=== PATIENT | male | born 1985 | race Caucasian/White ===

== ENCOUNTER 2017-12-24 11:02 | Emergency (ER) | payer OTHER ==
[2017-12-24 11:33] VITALS: BP 137/75
--- NOTE | 2017-12-24 12:39 | UC ---
Knee Pain HPI - HPI Summary HPI Summary: Pt c/o sudden onset of pain in right knee after being in standing position, reaching toward right side and hearing "pop" and sudden onset of pain in right knee. Pt denies any other trauma or injury to knee. Pt able to bear weight and to ambulate. - History of Current Complaint Chief Complaint: UCLowerExtremity Stated Complaint: W/C RT KNEE INJURY Time Seen by Provider: 12/24/17 12:15 Hx Obtained From: Patient Onset/Duration: Sudden Onset Severity Initially: Moderate Severity Currently: Mild Pain Intensity: 2 Character: Dull, Aching Aggravating Factor(s): Movement, Prolonged Standing Alleviating Factor(s): Rest, Position Associated Signs And Symptoms: Positive: Negative Able to Bear Weight: Yes - Risk Factors Septic Arthritis Risk Factor: Negative Gout Risk Factor: Negative - Allergies/Home Medications Allergies/Adverse Reactions: Allergies Allergy/AdvReac Type Severity Reaction Status Date / Time insect bite Allergy Swelling Uncoded 12/24/17 11:27 Of Face,Lips,& Throat Home Medications: Home Medications NK [No Home Medications Reported] 12/24/17 [History Confirmed 12/24/17] PMH/Surg Hx/FS Hx/Imm Hx Previously Healthy: Yes - Surgical History Surgical History: None - Family History Known Family History: Positive: Hypertension - Social History Occupation: Employed Full-time Lives: With Family Alcohol Use: None Substance Use Type: None Smoking Status (MU): Never Smoked Tobacco Have You Smoked in the Last Year: No - Immunization History Most Recent Tetanus Shot: UTD Review of Systems Constitutional: Negative Skin: Negative Eyes: Negative ENT: Negative Respiratory: Negative Cardiovascular: Negative Gastrointestinal: Negative Genitourinary: Negative Motor: Negative Neurovascular: Negative Musculoskeletal: Arthralgia - right knee, Myalgia - right knee Neurological: Negative Psychological: Negative Is Patient Immunocompromised?: No All Other Systems Reviewed And Are Negative: Yes Physical Exam Triage Information Reviewed: Yes Appearance: Well-Appearing Vital Signs: Initial Vital Signs Temp 96.9 F 12/24/17 11:28 Pulse 64 12/24/17 11:28 Resp 16 12/24/17 11:28 BP 137/75 12/24/17 11:28 Pulse Ox 99 12/24/17 11:28 Vital Signs Reviewed: Yes Eye Exam: Normal ENT Exam: Normal Dental Exam: Normal Neck exam: Normal Respiratory: Positive: No respiratory distress Musculoskeletal Exam: Other Musculoskeletal: Positive: Other: - c/o pain with full extension Neurological Exam: Normal Psychological Exam: Normal Skin Exam: Normal Knee Pain Course/Dx - Differential Dx/Diagnosis Differential Diagnosis/HQI/PQRI: Internal Derangement Of Knee, Sprain, Strain Provider Diagnoses: right knee pain. Discharge - Sign-Out/Discharge Documenting (check all that apply): Patient Departure - Discharge Plan Condition: Stable Disposition: HOME Patient Education Materials: Knee Pain (ED) Forms: *Work Release Referrals: Alvaro Nolan MD [Medical Doctor] - If Needed Tamra Walsh MD [Primary Care Provider] - If Needed - Billing Disposition and Condition Condition: STABLE Disposition: Home
== END 2017-12-24 13:00 | disposition home or self-care (01) ==
LOC: UCCORT 11:02
DX: M25.561 Pain in right knee (principal); Z91.038 Other insect allergy status
CPT/HCPCS: 99211; G0463

== ENCOUNTER 2018-09-19 08:22 | Day surgery (SDC) | payer OTHER ==
[~2018-09-19 08:22] MED LIST: Acetaminophen TAB* 325 MG PO ONE; Buffered Lidocaine 1% SYRIN* 1 ML/SYRINGE INTRADERM ONE; Dexamethasone IV* 4 MG/ML 1 ML (4 MG) IV SLOW PU ONE; Famotidine IV* 10 MG/ML 2 ML (20 mg) IV ONE; Famotidine TAB* 20 MG PO ONE; Gabapentin CAP(*) 300 MG PO ONE; Lactated Ringers 1000 ML Bag* 1,000 ML IV SCH; celeCOXIB CAP* 200 MG PO ONE
[2018-09-19] MEDS ORDERED: Midazolam* 1 MG/ML 2 ML VIAL (2 MG) ONE (08:40)
[2018-09-19] MEDS ORDERED: Rocuronium* 10 MG/ML VIAL ONE (08:40)
[2018-09-19] MEDS ORDERED: Propofol* 10 MG/ML 20 ML BTL ONE (08:40)
[2018-09-19] MEDS ORDERED: fentaNYL* 50 MCG/ML 2 ML VIAL (100 MCG VIAL) ONE (08:40)
[2018-09-19] MEDS ORDERED: Succinylcholine* 20 MG/ML 10 ML VIAL ONE (08:41)
[2018-09-19] MEDS ORDERED: Gabapentin CAP(*) 300 MG ONE (08:59)
[2018-09-19] MEDS ORDERED: celeCOXIB CAP* 100 MG ONE (08:59)
[2018-09-19] MEDS ORDERED: Dexamethasone IV* 4 MG/ML 1 ML (4 MG) ONE (08:59)
[2018-09-19] MEDS ORDERED: Acetaminophen TAB* 325 MG ONE ×2 (09:00→13:43)
[2018-09-19] MEDS ORDERED: Buffered Lidocaine 1% SYRIN* 1 ML/SYRINGE INTRADERM ONE (09:00)
[2018-09-19] MEDS ORDERED: ceFAZolin 2 GM in NS PREMIX(*) 2 GM/100 ML BAG IVPB ONE (09:00)
[2018-09-19] MEDS ORDERED: Famotidine TAB* 20 MG ONE (09:00)
[2018-09-19] MEDS ORDERED: EPINEPHRINE 1 MG/ML 1 ML VIAL ONE ×2 (10:19→10:27)
[2018-09-19] MEDS ORDERED: Bupivacaine 0.5%* 50 ML VIAL ONE (10:20)
[2018-09-19] MEDS ORDERED: Lidocaine 1%* 5 ML VIAL ONE (10:21)
[2018-09-19] MEDS ORDERED: ROPIVACAINE 5 MG/ML 30 ML BTL (0.5%) ONE (10:21)
[2018-09-19] MEDS ORDERED: Bupivacaine 0.25% W/EPI* 10 ML SDV ONE (10:27)
[2018-09-19] MEDS ORDERED: ceFAZolin 1 GM ADVAN(*) 1 GM ADDV.VIAL IVPB ONE (10:28)
[2018-09-19] MEDS ORDERED: Ondansetron INJ* 2 MG/ML VIAL IV PRN (11:37)
[2018-09-19] MEDS ORDERED: Ketorolac INJ* 30 MG/ML 1 ML VIAL IV PRN (11:37)
[2018-09-19] MEDS ORDERED: Acetaminophen TAB* 325 MG PO PRN (11:37)
[2018-09-19] MEDS ORDERED: HYDROmorphone INJ1* 1 MG/ML SYRINGE IV PRN (11:37)
[2018-09-19] MEDS ORDERED: Naloxone* 0.4 MG/ML 1 ML VIAL IV PRN (11:37)
[2018-09-19] MEDS ORDERED: oxyCODONE TAB* 5 MG TAB PO PRN (11:37)
[2018-09-19] MEDS ORDERED: DiMENhydriNATE IV* 50 MG/ML VIAL IV PUSH PRN (11:37)
[2018-09-19] MEDS ORDERED: fentaNYL* 50 MCG/ML 2 ML VIAL (100 MCG VIAL) IV PRN (11:37)
[2018-09-19] MEDS ORDERED: Ketorolac INJ* 30 MG/ML 1 ML VIAL ONE (13:06)
[2018-09-19] MEDS ORDERED: Ondansetron INJ* 2 MG/ML VIAL ONE (13:14)
[2018-09-19] MEDS ORDERED: DiMENhydriNATE IV* 50 MG/ML VIAL ONE (13:49)
[2018-09-19 14:25] VITALS: BP 124/76
--- NOTE | 2018-09-19 17:05 | OP ---
DATE OF OPERATION: 09/19/18 - [facility] DATE OF : 83 SURGEON: Bismark Marie MD ANESTHESIA: Regional and general. PRE-OP DIAGNOSES: 1. [place] complex with SLAP lesion, right shoulder. 2. Impingement syndrome. POST-OP DIAGNOSES: 1. [place] complex with SLAP lesion right shoulder. 2. Impingement syndrome. OPERATIVE PROCEDURE: 1. Right shoulder arthroscopy. 2. Labral repair. 3. Subacromial decompression. ESTIMATED BLOOD LOSS: Less than 20 cc. COMPLICATIONS: None. SUMMARY: Mr. Sharpe is a 33-year-old male who I had met approximately 3 years ago with right shoulder pain. He underwent an MRI, which showed a [place] complex quite nicely, but there also appeared to be a detachment of the very top of the labrum. I had discussed with him that a shoulder arthroscopy, labral repair, and decompression as he also had impingement symptoms. He just had started a job at [employer] and did not have the time available. He now has the time available and re-presented to the office, requesting the right shoulder arthroscopy as he still has the exact same symptoms with the shoulder. Specifically, he has pain as he tries to reach up and do anything heavier with the shoulder and as he moves, there is very specific pop within the shoulder which is painful. Risks of surgery such as infection, scar formation, stiffness , and continued pain were some of the risks discussed. He had wished to proceed. DESCRIPTION OF PROCEDURE: The patient had a block placed in the holding area and was brought back to the OR. General endotracheal anesthesia was established. He was set up in the beach chair position. Care was taken to make sure that his ears were nice and free in a head of insight and that is left shoulder was nicely padded on the airplane board. Right shoulder area was prepped and then draped. Anterior and posterior portal sites were preinjected using 10 cc of 0.25% Marcaine with epinephrine. A standard posterior portal was made first using an 11 blade and blunt trocar, and the sheath was easily introduced into the shoulder joint. Camera was introduced into the sheath and shoulder was allowed to insufflate. Pulling back, labral tear was immediately evident. Pictures were taken. Under direct vision using an outside-in- technique, anterior portal was established and probe was introduced. It could be seen where he had very specific damage of the labral attachment right at the top of the glenoid. He actually had a good variant of the Jelly complex as I was able to get some nice pictures showing how the labrum came down and merged in the anterior capsule, but he actually had much better labrum than I had seen in many other people along the anterior rim of the glenoid as well. Shaver was used to debride the nubbin pieces of torn labrum from the 12 to 1 o'clock position. Shaver was then used to scuff the top side of the glenoid and underside of the labrum right in that area. Port was introduced and a 3.5 anchor was placed and a nice solid bite was obtained with it. Using high angle [place] , I was able to grasp one of the sutures and pull through and around and then the labrum was sewn down at approximately at 12:30 position. Rotator cuff attachment was in excellent condition and no loose bodies were seen in the pouch. Shoulder joint was exited and subacromial space was entered. Thickened bursa was present and taken down using the shaver. Once the nice bursectomy was performed, bur was introduced and used to decompression. Final pictures were then taken. All instrumentation was removed. Portal sites were closed using 4-0 nylon sutures. Sterile dressing and Cryo/Cuff and shoulder immobilizer were applied in the OR. The patient was then extubated in the OR and was stable on transfer to the recovery room. DISPOSITION/DISCHARGE SUMMARY: Mr. Sharpe is a 33-year-old male who just underwent a right shoulder arthroscopy and labral repair. He tolerated the procedure well. There were no complications. He is here in the recovery room. Once he wakes a bit more from his general anesthesia, can tolerate p.o., has his pain well controlled, and can void, he will be discharged home. Prescriptions for [place] will be sent in. He has instructions to keep his dressing clean, dry, and intact for the next 3 days, but after that, may take his dressing down, cover his sutures with Band-Aid, may shower, wash and get it wet, but should not soak it. He should not reach up above 90 degrees or out to the side. I would like to see him in the office in approximately 10 days to remove his sutures and make sure he is doing well. If there are any problems or if anything odd should occur, there are instructions to give the office a call. [id number]/[facility] #: [id number] DANIEL
== END 2018-09-19 14:38 | disposition home or self-care (01) ==
LOC: OR 08:22
PROVIDERS: ATTEND Orthopaedic Surgery
DX: S43.431A Superior glenoid labrum lesion of right shoulder, initial encounter (principal); M75.41 Impingement syndrome of right shoulder; G89.18 Other acute postprocedural pain; J45.990 Exercise induced bronchospasm; K21.9 Gastro-esophageal reflux disease without esophagitis; X58.XXXA Exposure to other specified factors, initial encounter; Y92.9 Unspecified place or not applicable
CPT/HCPCS: A9270-GY; C1713; J0330; J0690; J1100; J1240; J1885; J2250; J2405; J2704; J2795; J3010

== ENCOUNTER 2019-03-02 11:48 | Emergency (ER) | payer OTHER ==
[2019-03-02 12:37] VITALS: BP 133/66
--- NOTE | 2019-03-02 12:47 | UC ---
Skin Complaint HPI - HPI Summary HPI Summary: Pt presents with c/o insect bite/sting to right upper medial arm. Pt believes he was stung yesterday. Pt has not taken any antihistamine. - History of Current Complaint Chief Complaint: UCRash Time Seen by Provider: 03/02/19 12:39 Stated Complaint: STING ON RT ARM Hx Obtained From: Patient Onset/Duration: Sudden Onset, Lasting Days, Still Present Skin Exposure Onset/Duration: Days Ago - 1 Timing: Constant Onset Severity: Mild Current Severity: Mild Pain Intensity: 0 Location: Discrete - right upper medial arm Character: Swelling, Pruritus, Redness, Raised Aggravating Factor(s): Touch Alleviating Factor(s): Unknown Associated Signs & Symptoms: Positive: Rash, Tenderness Related History: Insect Bite/Sting - Allergy/Home Medications Allergies/Adverse Reactions: Allergies Allergy/AdvReac Type Severity Reaction Status Date / Time insect bite Allergy Swelling Uncoded 03/02/19 12:26 Of Face,Lips,& Throat Home Medications: Home Medications Metoprolol Tab 1 tab PO QPM 03/02/19 [History Confirmed 03/02/19] PMH/Surg Hx/FS Hx/Imm Hx Previously Healthy: Yes - Surgical History Surgical History: Yes Surgery Procedure, Year, and Place: right shoulder [facility] - Family History Known Family History: Positive: Hypertension - Social History Occupation: Employed Full-time Lives: With Family Alcohol Use: None Substance Use Type: None Smoking Status (MU): Never Smoked Tobacco Have You Smoked in the Last Year: No - Immunization History Most Recent Tetanus Shot: UTD Vaccination Up to Date: Yes Review of Systems All Other Systems Reviewed And Are Negative: Yes Constitutional: Positive: Negative Skin: Positive: Rash, Other - redness, erythema, slight swelling, c/o pruritis Eyes: Positive: Negative ENT: Positive: Negative Respiratory: Positive: Negative Cardiovascular: Positive: Negative Gastrointestinal: Positive: Negative Genitourinary: Positive: Negative Motor: Positive: Negative Neurovascular: Positive: Negative Musculoskeletal: Positive: Negative Neurological: Positive: Negative Psychological: Positive: Negative Is Patient Immunocompromised?: No Physical Exam Triage Information Reviewed: Yes Appearance: Well-Appearing Vital Signs: Initial Vital Signs Temp 97.7 F 03/02/19 12:31 Pulse 78 03/02/19 12:31 Resp 18 03/02/19 12:31 BP 133/66 03/02/19 12:31 Pulse Ox 99 03/02/19 12:31 Vital Signs Reviewed: Yes Eye Exam: Normal ENT: Positive: Hearing grossly normal Dental Exam: Normal Neck exam: Normal Respiratory: Positive: No respiratory distress Musculoskeletal Exam: Normal Neurological Exam: Normal Psychological Exam: Normal Skin Exam: Other - large area of redness and slight swelling with area of "bite " in center. ~ 8 cm in diameter. Course/Dx - Differential Diagnoses - Skin Complaint Differential Diagnoses: Cellulitis, Urticaria - Diagnoses Provider Diagnosis: Insect bite Discharge ED - Sign-Out/Discharge Documenting (check all that apply): Patient Departure All imaging exams completed and their final reports reviewed: No Studies - Discharge Plan Condition: Stable Disposition: HOME Patient Education Materials: Antihistamine (By mouth), Insect Bite or Sting (ED ) Referrals: Tahira Mccain MD [Primary Care Provider] - If Needed Additional Instructions: Please follow up with your PCP as needed. If your symptoms worsen, please seek care at the closest emergency room as soon as possible. - Billing Disposition and Condition Condition: STABLE Disposition: Home
== END 2019-03-02 12:57 | disposition home or self-care (01) ==
LOC: UCCORT 11:48
DX: S40.861A Insect bite (nonvenomous) of right upper arm, initial encounter (principal); W57.XXXA Bitten or stung by nonvenomous insect and other nonvenomous arthropods, initial encounter; Y93.9 Activity, unspecified; Y92.9 Unspecified place or not applicable
CPT/HCPCS: 99211; G0463